=== PATIENT | female | born 1990 | race American Indian/Alaskan Native ===

== ENCOUNTER 2017-08-13 20:33 | Emergency (ER) | payer OTHER ==
[2017-08-13 21:04] VITALS: BMI 25.6
[2017-08-13] MEDS ORDERED: Sodium Chloride 0.9% 1,000 ML IV STA (21:08)
--- NOTE | 2017-08-13 21:12 | ED PDOC ---
Arrival/HPI <Augie Potter - Last Filed: 08/13/17 23:41> <Unruly iWlls - Last Filed: 08/14/17 00:40> - General Chief Complaint: Abdominal Pain Time Seen by Provider: 08/13/17 20:34 - History of Present Illness Narrative History of Present Illness (Text): Patient is a 26 year old female with a past medical history of asthma who presents to the ED for evaluation and treatment of abdominal pain with associated nausea and weakness which began 3 days ago with no specific provoking event. The abdominal pain originates in the epigastric region and remains localized. States the pain is sharp in nature. Admits to associated belching and metallic taste in her mouth. It is important to note she has been taking ibuprofen 800mg 1-2 times per day for the past several weeks after her wisdom teeth removal. Denies fever, chills, chest pain, SOB, vomitting, diarrhea , constipation, and urinary symptoms. 08/13/17 1:14 (Unruly Wills) Past Medical History - Provider Review Nursing Documentation Reviewed: Yes - Travel History Have you recently traveled outside [place] w/in the past 3 mons?: No - Reproductive Menopause: No - Cardiac Hx Cardiac Disorders: No - Pulmonary Hx Respiratory Disorders: No - Neurological Hx Neurological Disorder: No - HEENT Hx HEENT Disorder: No - Renal Hx Renal Disorder: No - Hematological/Oncological Hx Blood Disorders: No - Integumentary Hx Dermatological Disorder: No - Musculoskeletal/Rheumatological Hx Musculoskeletal Disorders: No - Gastrointestinal Hx Gastrointestinal Disorders: No - Genitourinary/Gynecological Hx Genitourinary Disorders: No - Psychiatric Hx Psychophysiologic Disorder: No Hx Substance Use: No - Anesthesia Hx Anesthesia: Yes Hx Anesthesia Reactions: No Hx Malignant Hyperthermia: No <Unruly Wills - Last Filed: 08/14/17 00:40> Family/Social History - Physician Review Nursing Documentation Reviewed: Yes Family/Social History: Unknown Family HX Smoking Status: Never Smoked Hx Alcohol Use: No Hx Substance Use: No <Unruly Wills - Last Filed: 08/14/17 00:40> Allergies/Home Meds <Augie Potter - Last Filed: 08/13/17 23:41> <Unruly Wills - Last Filed: 08/14/17 00:40> Allergies/Adverse Reactions: Allergies Penicillins Allergy (Verified 06/09/18 20:55) URTICARIA Home Medications: Home Meds Medication Instructions Recorded Confirmed No Known Home Med 08/13/17 08/13/17 Review of Systems - Physician Review All systems were reviewed & negative as marked: Yes - Review of Systems Constitutional: Normal Eyes: Normal ENT: Normal Respiratory: Normal Cardiovascular: Normal Gastrointestinal: Abdominal Pain, Nausea Genitourinary Female: Normal Musculoskeletal: Normal Skin: Normal Neurological: Normal Endocrine: Normal Hemo/Lymphatic: Normal Psychiatric: Normal <Unruly Wills - Last Filed: 08/14/17 00:40> Physical Exam Vital Signs Reviewed: Yes <Auige Potter - Last Filed: 08/13/17 23:41> Temperature: Afebrile Blood Pressure: Normal Pulse: Regular Respiratory Rate: Normal Appearance: Positive for: Well-Appearing, Non-Toxic, Comfortable Pain Distress: None Mental Status: Positive for: Alert and Oriented X 3 - Systems Exam Head: Present: Atraumatic, Normocephalic Pupils: Present: PERRL Extroacular Muscles: Present: EOMI Conjunctiva: Present: Normal Pharnyx: Present: Normal Nose (External): Present: Atraumatic Respiratory/Chest: Present: Clear to Auscultation, Good Air Exchange. No: Respiratory Distress, Accessory Muscle Use Cardiovascular: Present: Regular Rate and Rhythm, Normal S1, S2 Abdomen: Present: Tenderness, Normal Bowel Sounds. No: Peritoneal Signs, Rebound, Guarding, McBurney's Point Tender Upper Extremity: Present: Normal Inspection Lower Extremity: Present: Normal Inspection Neurological: Present: GCS=15, CN II-XII Intact, Speech Normal, Motor Func Grossly Intact, Normal Sensory Function Skin: Present: Warm, Dry, Normal Color Psychiatric: Present: Alert, Oriented x 3, Normal Insight, Normal Concentration <Unruly Wills - Last Filed: 08/14/17 00:40> Vital Signs Temp Pulse Resp BP Pulse Ox 08/13/17 23:15 98.6 F 60 18 111/79 100 08/13/17 20:48 98.4 F 67 17 107/62 100 Medical Decision Making <Augie Potter - Last Filed: 08/13/17 23:41> - Lab Interpretations I have reviewed the lab results: Yes <Unruly Wills - Last Filed: 08/14/17 00:40> ED Course and Treatment: 08/13/17 22:41 Cheryl Mendoza is a 26 year old female who presents to the emergency department for a complaint of abdominal pain, nausea, and weakness. In agreement with resident note which contains more details about the patient. Patient was seen and evaluated with resident. Came up with plan and treatment together. (Augie Potter) Assessment and Plan: Patient is a 26 year old female with a past medical history of asthma who presents to the ED for evaluation and treatment of abdominal pain with associated nausea and weakness. Abdominal Pain likely 04/08 GERD 08/13/17 21:35 - CBC, CMP - Mag - Lipase - PT PTT - UA - Urine Test, Hcg qualitative - Zofran, PPI, IVF NS 1 liter bolus 08/13/17 22:38 - CT of abdomen/pelvis with IV contrast 08/14/17 00:24 - CT reviewed- Small pelvic free fluid, possibly physiologic. No evidence of acute appendicitis. Postsurgical changes consistent with umbilical hernia repair. - ok to discharge to home (Unruly Wills) - Lab Interpretations Lab Results: 08/13/17 21:24 08/13/17 21:24 Lab Results 08/13/17 22:05: Urine Color Colorless, Urine Appearance Clear, Urine pH 6.0, Ur Specific [place] 1.025, Urine Protein 30 H, Urine Glucose (UA) Negative, Urine Ketones Trace H, Urine Blood Negative, Urine Nitrate Negative, Urine Bilirubin Negative, Urine Urobilinogen 0.2, Ur Leukocyte Esterase Negative, Urine RBC Negative, Urine WBC 0 - 2, Ur Epithelial Cells 1 - 3, Hyaline Casts 0 - 2, Urine HCG, Qual Negative 08/13/17 21:24: Sodium 144, Potassium 3.8, Chloride 107, Carbon Dioxide 25, Anion Gap 16, BUN 9, Creatinine 0.9, Est GFR ( Amer) > 60, Est GFR (Non- Af Amer) > 60, Random Glucose 91, Calcium 9.1, Magnesium 2.0, Total Bilirubin 0.2, AST 21, ALT 16, Alkaline Phosphatase 44, Total Protein 6.7, Albumin 3.9, Globulin 2.8, Albumin/Globulin Ratio 1.4, Lipase 145 08/13/17 21:24: PT 12.0, INR 1.05, APTT 27.4 08/13/17 21:24: WBC 7.4, RBC 3.92, Hgb 10.6 L, Hct 32.7 L, MCV 83.4, MCH 27.0, MCHC 32.4, RDW 13.6, Plt Count 322, MPV 9.0, Gran % 52.8, Lymph % (Auto) 39.2 H , [place] % (Auto) 4.3, Eos % (Auto) 3.4, Baso % (Auto) 0.3, Gran # 3.91, Lymph # ( Auto) 2.9, [place] # (Auto) 0.3, Eos # (Auto) 0.3, Baso # (Auto) 0.02 - RAD Interpretation Radiology Orders: 08/13/17 22:15 ABD & PELVIS IV CONTRAST ONLY [CT] Stat 08/13/17 22:15 ABD & PELVIS IV CONTRAST ONLY [CT] Stat FINDINGS: Lung bases: Unremarkable. No mass. No consolidation. ABDOMEN: Liver: Unremarkable. No mass. Gallbladder and bile ducts: The gallbladder is contracted. No calcified stones. No ductal dilation. Pancreas: Unremarkable. No mass. No ductal dilation. Spleen: Unremarkable. No splenomegaly. Adrenals: Unremarkable. No mass. Kidneys and ureters: Unremarkable. No solid mass. No hydronephrosis. Stomach and bowel: There is no wall thickening or pericolonic stranding to suggest colitis. No obstruction. PELVIS: There is mild stranding of the abdominal fat posterior to the umbilicus consistent with known umbilical hernia repair. Appendix: The appendix is mildly distended with gas measuring 7 mm. There is no adjacent inflammatory stranding to suggest acute appendicitis. Bladder: Unremarkable. No mass. Reproductive: A tampon is incidentally identified. ABDOMEN and PELVIS: There are Intraperitoneal space: There is a small amount of free pelvic fluid present. No free air. Bones/joints: No acute fracture. No dislocation. Soft tissues: Unremarkable. Vasculature: Unremarkable. No abdominal aortic aneurysm. Lymph nodes: Unremarkable. No enlarged lymph nodes. IMPRESSION: Small pelvic free fluid, possibly physiologic. No evidence of acute appendicitis. Postsurgical changes consistent with umbilical hernia repair (Unruly Wills) - Medication Orders Current Medication Orders: Discontinued Medications Sodium Chloride (Sodium Chloride 0.9%) 1,000 mls @ 1,000 mls/hr IV .Q1H STA Stop: 08/13/17 22:07 Last Admin: 08/13/17 21:26 Dose: 1,000 mls/hr eMAR Start Stop Document 08/13/17 21:26 (Rec: 08/13/17 21:26 [id number]) Intravenous Solution Start Date 08/13/17 Start Time 21:26 Ondansetron HCl (Zofran Inj) 4 mg IVP STAT STA Stop: 08/13/17 21:09 Last Admin: 08/13/17 21:25 Dose: 4 mg IVP Administration Document 08/13/17 21:25 SH (Rec: 08/13/17 21:25 [id number]) Charges for Administration # of IVP Administrations 1 Pantoprazole Sodium (Protonix Inj) 40 mg IVP STAT STA Stop: 08/13/17 21:09 Last Admin: 08/13/17 21:25 Dose: 40 mg IVP Administration Document 08/13/17 21:25 SH (Rec: 08/13/17 21:25 [id number]) Charges for Administration # of IVP Administrations 1 - Scribe Statement The provider has reviewed the documentation as recorded by the Scribe <Augie Potter - Last Filed: 08/13/17 23:41> <Unruly Wills - Last Filed: 08/14/17 00:40> - Scribe Statement Missy Cullen Provider Scribe Attestation: All medical record entries made by the Scribe were at my direction and personally dictated by me. I have reviewed the chart and agree that the record accurately reflects my personal performance of the history, physical exam, medical decision making, and the department course for this patient. I have also personally directed, reviewed, and agree with the discharge instructions and disposition. (Augie Potter) Disposition/Present on Arrival <Augie Potter - Last Filed: 08/13/17 23:41> - Present on Arrival Any Indicators Present on Arrival: No History of DVT/PE: No History of Uncontrolled Diabetes: No Urinary Catheter: No History of Decub. Ulcer: No History Surgical Site Infection Following: None - Disposition Have Diagnosis and Disposition been Completed?: Yes Disposition Time: 00:27 Patient Plan: Discharge <Unruly Wills - Last Filed: 08/14/17 00:40> - Disposition Diagnosis: Gastritis, GERD (gastroesophageal reflux disease) Disposition: HOME/ ROUTINE Patient Problems: Current Active Problems Problem Status Onset GERD (gastroesophageal reflux disease) Acute Gastritis Acute Condition: GOOD Additional Instructions: CHERYL MENDOZA, thank you for letting us take care of you today. Your provider was Augie Potter DO and you were treated for ABDOMINAL PAIN. The emergency medical care you received today was directed at your acute symptoms. If you were prescribed any medication, please fill it and take as directed. It may take several days for your symptoms to resolve. Return to the Emergency Department if your symptoms worsen, do not improve, or if you have any other problems. Please contact your doctor or call one of the physicians/clinics you have been referred to that are listed on the Patient Visit Information form that is included in your discharge packet. Bring any paperwork you were given at discharge with you along with any medications you are taking to your follow up visit. Our treatment cannot replace ongoing medical care by a primary care provider outside of the emergency department. Thank you for allowing the [facility] team to be part of your care today. If you had an X-Ray or CT scan: A Radiologist will review the ED reading if any change in treatment is needed we will contact you. If you had a blood, urine, or wound culture: It will take several days for the results, if any change in treatment is needed we will contact you. If you had an STI test: It will take 48 hours for the results. Please call after 1 week if you have not heard back. Please follow up with primary care physician within 2-5 days from discharge. Please take over the counter omeprazole 40 mg 1 tablet daily for 14 days. Referrals: Sydnee Villanueva DO [Primary Care Provider] - Follow up with primary Forms: [employer] (Nauruan)
[2017-08-13 21:34] LABS: BASO # 0.02 K/mm3 (0.0-2.0); BASO % 0.3 % (0.0-3.0); EOS # 0.3 (0.0-0.7); EOS % 3.4 % (1.5-5.0); GRAN # 3.91 (1.4-6.5); GRAN % 52.8 % (50.0-68.0); HEMOGLOBIN 10.6 g/dL (12.0-16.0); LYMPH # 2.9 (1.2-3.4); LYMPH % 39.2 % (22.0-35.0); MEAN CELL VOLUME 83.4 fl (80.0-105.0); MEAN CORPUSCULAR HGB CONC 32.4 g/dl (31.0-37.0); MONO # 0.3 (0.1-0.6); MONO % 4.3 % (1.0-6.0); RBC 3.92 10^6/uL (3.5-6.1); RED CELL DISTRIBUTION WIDTH 13.6 % (11.5-14.5); WHITE BLOOD COUNT 7.4 10^3/ul (4.5-11.0)
[2017-08-13 21:39] LABS: ALB/GLOB RATIO 1.4 (1.1-1.8); ALBUMIN 3.9 g/dL (3.0-4.8); ALT/SGPT 16 U/L (7-56); AST/SGOT 21 U/L (14-36); BLOOD UREA NITROGEN 9 mg/dL (7-21); CALCIUM 9.1 mg/dL (8.4-10.5); GFR AFRICAN-AMERICAN > 60; GFR NON-AFRICAN AMERICAN > 60; LIPASE 145 U/L (23-300)
[2017-08-13 21:44] LABS: INR 1.05 (0.93-1.08); PARTIAL THROMBOPLASTIN TIME 27.4 Seconds (25.1-36.5)
[2017-08-13 22:13] LABS: URINE BILIRUBIN NEGATIVE (NEGATIVE); URINE BLOOD NEGATIVE (NEGATIVE); URINE GLUCOSE (UA) NEGATIVE (NEGATIVE); URINE LEUKOCYTE ESTERASE NEGATIVE Leu/uL (NEGATIVE); URINE PROTEIN 30 mg/dL (<30 mg/dL); URINE UROBILINOGEN 0.2 E.U./dL (<1 E.U./dL)
[2017-08-13 22:14] LABS: URINE APPEARANCE CLEAR (CLEAR); URINE COLOR COLORLESS (YELLOW)
[2017-08-13 22:16] LABS: HCG,QUALITATIVE URINE NEGATIVE (NEGATIVE)
[2017-08-13 22:20] LABS: URINE HYALINE CAST 0 - 2 /hpf; URINE RBC NEGATIVE /hpf (0-2); URINE WBC 0 - 2 /hpf (0-6)
[2017-08-13] MEDS ORDERED: Iohexol 350 MG/100 ML VIAL ONE (22:20)
--- NOTE | 2017-08-14 00:08 | CT ---
EXAM: CT Abdomen and Pelvis With Intravenous Contrast CLINICAL HISTORY: 26 years old, female; Pain; Abdominal pain; Localized; Right lower quadrant (rlq); Prior surgery; Surgery type: Umbilical herniorrhaphy; Additional info: Rlq, epigastric pain TECHNIQUE: Axial computed tomography images of the abdomen and pelvis with intravenous contrast. All CT scans at this facility use one or more dose reduction techniques, viz.: automated exposure control; ma/kV adjustment per patient size (including targeted exams where dose is matched to indication; i.e. head); or iterative reconstruction technique. Coronal and sagittal reformatted images were created and reviewed. CONTRAST: 92 mL of OMNI 350 administered intravenously. COMPARISON: No relevant prior studies available. FINDINGS: Lung bases: Unremarkable. No mass. No consolidation. ABDOMEN: Liver: Unremarkable. No mass. Gallbladder and bile ducts: The gallbladder is contracted. No calcified stones. No ductal dilation. Pancreas: Unremarkable. No mass. No ductal dilation. Spleen: Unremarkable. No splenomegaly. Adrenals: Unremarkable. No mass. Kidneys and ureters: Unremarkable. No solid mass. No hydronephrosis. Stomach and bowel: There is no wall thickening or pericolonic stranding to suggest colitis. No obstruction. PELVIS: There is mild stranding of the abdominal fat posterior to the umbilicus consistent with known umbilical hernia repair. Appendix: The appendix is mildly distended with gas measuring 7 mm. There is no adjacent inflammatory stranding to suggest acute appendicitis. Bladder: Unremarkable. No mass. Reproductive: A tampon is incidentally identified. ABDOMEN and PELVIS: There are Intraperitoneal space: There is a small amount of free pelvic fluid present. No free air. Bones/joints: No acute fracture. No dislocation. Soft tissues: Unremarkable. Vasculature: Unremarkable. No abdominal aortic aneurysm. Lymph nodes: Unremarkable. No enlarged lymph nodes. IMPRESSION: Small pelvic free fluid, possibly physiologic. No evidence of acute appendicitis. Postsurgical changes consistent with umbilical hernia repair.
[2017-08-14 01:01] VITALS: BP 118/68; PULSE 62; RESP 16; TEMP 98.2; O2SAT 97
== END 2017-08-14 00:50 | disposition home or self-care (01) ==
LOC: ED 20:33 → MERGE 20:33 → ED 08-14 00:50
DX: K21.9 Gastro-esophageal reflux disease without esophagitis (principal); K29.70 Gastritis, unspecified, without bleeding
CPT/HCPCS: 74177; 80053; 81001; 83690; 83735; 84703; 85025; 85610; 85730; 96374; 96375; 99282; C9113; J2405; J7030; Q9967

== ENCOUNTER 2017-10-04 18:16 | Emergency (ER) | payer OTHER ==
[2017-10-04 18:19] VITALS: BMI 24.7
[2017-10-04 18:20] VITALS: RESP 18; TEMP 98; O2SAT 100
--- NOTE | 2017-10-04 18:54 | ED PDOC ---
Arrival/HPI - General Historian: Patient - General Chief Complaint: ENT Problem Time Seen by Provider: 10/04/17 18:36 - History of Present Illness Narrative History of Present Illness (Text): 10/04/17 18:48 Patient is a 26 year old female with no past medical history presents with a 10 hour hx of runny nose, sore throat and body aches. She woke up this morning with body aches, runny nose and a headache. She took excedrin at 10 am which provided her with moderate relief. She has not taken anything since. She feels a little bit better now but states she no longer has an appetite. Her last meal was approximately 30 minutes ago, which she ate [employer]. She denies fevers, chills, nausea, vomiting, diarrhea, constipation, chest pain, shortness of breath, abdominal pain, numbness or tingling. She denies any sick contacts at home or at work. (GlenysDemarco) Past Medical History - Provider Review Nursing Documentation Reviewed: Yes - Infectious Disease Hx of Infectious Diseases: None - Cardiac Hx Cardiac Disorders: No - Pulmonary Hx Respiratory Disorders: No - Neurological Hx Neurological Disorder: No - HEENT Hx HEENT Disorder: No - Renal Hx Renal Disorder: No - Hematological/Oncological Hx Blood Disorders: No - Integumentary Hx Dermatological Disorder: No - Musculoskeletal/Rheumatological Hx Musculoskeletal Disorders: No - Gastrointestinal Hx Gastrointestinal Disorders: No - Genitourinary/Gynecological Hx Genitourinary Disorders: No - Psychiatric Hx Psychophysiologic Disorder: No Hx Substance Use: No - Surgical History Other/Comment: hernia sx - Anesthesia Hx Anesthesia: Yes Hx Anesthesia Reactions: No Hx Malignant Hyperthermia: No - Suicidal Assessment Feels Threatened In Home Enviroment: No Family/Social History - Physician Review Nursing Documentation Reviewed: Yes Family/Social History: Unknown Family HX Smoking Status: Never Smoked Hx Alcohol Use: No Hx Substance Use: No Allergies/Home Meds Allergies/Adverse Reactions: Allergies Penicillins Allergy (Intermediate, Verified 05/05/17 10:47) RASH Review of Systems - Physician Review All systems were reviewed & negative as marked: Yes - Review of Systems Constitutional: Normal. absent: Fevers Eyes: Normal. absent: Vision Changes ENT: Sore Throat, Rhinorrhea. absent: Epistaxis, Sinus Congestion Respiratory: Cough (mild, productive clear sputum). absent: SOB Cardiovascular: Normal. absent: Chest Pain, Palpitations Gastrointestinal: Normal. absent: Abdominal Pain, Constipation, Diarrhea, Nausea, Vomiting Genitourinary Female: Normal Musculoskeletal: Myalgias (overall) Skin: Normal Neurological: Headache Endocrine: Normal Hemo/Lymphatic: Normal Psychiatric: Normal Physical Exam Vital Signs Reviewed: Yes Temperature: Afebrile Blood Pressure: Normal Pulse: Regular Respiratory Rate: Normal Appearance: Positive for: Well-Appearing, Non-Toxic, Comfortable Pain Distress: None Mental Status: Positive for: Alert and Oriented X 3 - Systems Exam Head: Present: Atraumatic, Normocephalic Extroacular Muscles: Present: EOMI Conjunctiva: Present: Normal. No: Injected, Icteric Mouth: Present: Moist Mucous Membranes, Normal Lips, Normal Tounge, Normal Teeth Pharnyx: Present: Normal. No: ERYTHEMA, EXUDATE, TONSILS ENLARGED, Peritonsilar Swelling, Uvular Deviation, Muffled/Hoarse Voice, Strider, Soft Palate/Uvular Edema Nose (External): Present: Atraumatic Nose (Internal): Present: Normal Inspection, No Active Bleeding, Moist. No: Engorged, Edematous, Rhinorrhea, Purulent Mucous Neck: Present: Normal Range of Motion. No: MIDLINE TENDERNESS, Lymphadenopathy Respiratory/Chest: Present: Clear to Auscultation, Good Air Exchange. No: Respiratory Distress, Accessory Muscle Use Cardiovascular: Present: Regular Rate and Rhythm, Normal S1, S2. No: Murmurs Abdomen: No: Tenderness, Distention, Peritoneal Signs Neurological: Present: GCS=15, Speech Normal, Memory Normal Skin: Present: Warm, Dry, Normal Color. No: Rashes Psychiatric: Present: Alert, Oriented x 3, Normal Insight, Normal Concentration Vital Signs Temp Pulse Resp BP Pulse Ox 10/04/17 19:12 98 F 81 18 110/68 100 10/04/17 18:19 98 F 80 18 107/68 100 Medical Decision Making ED Course and Treatment: 10/04/17 18:58 No symptoms present at time of presentation. Will discharge home. Discussed with patient and her boyfriend that there is no indication for antibiotics at this time due to short duration of illness. (Demarco Vreonica) Seen and examined with resident. 26 y/o F p/w rhinorrhea and mild body aches. On exam, clear lungs, pharnyx and tonsils normal. (Eugene Rogers) Disposition/Present on Arrival - Present on Arrival Any Indicators Present on Arrival: No History of DVT/PE: No History of Uncontrolled Diabetes: No Urinary Catheter: No History of Decub. Ulcer: No History Surgical Site Infection Following: None - Disposition Have Diagnosis and Disposition been Completed?: Yes Disposition Time: 19:00 Patient Plan: Discharge - Disposition Diagnosis: URI (upper respiratory infection) Disposition: HOME/ ROUTINE Condition: FAIR Discharge Instructions (ExitCare): Viral Upper Respiratory Infection, Adult (DC ) Prescriptions: Guaifenesin [Mucinex] 1,200 mg PO BID PRN #20 tab.er.12h PRN Reason: Flu Symptoms Forms: [facility] (Czech)
[2017-10-04 19:14] VITALS: BP 110/68; PULSE 81
== END 2017-10-04 19:12 | disposition home or self-care (01) ==
LOC: ED 18:16
DX: J06.9 Acute upper respiratory infection, unspecified (principal)

== ENCOUNTER 2018-07-20 08:18 | Emergency (ER) | payer OTHER ==
[2018-07-20 08:18] VITALS: BMI 24.7
[2018-07-20 08:29] VITALS: BP 95/64; PULSE 73; RESP 17; TEMP 97.5; O2SAT 100
--- NOTE | 2018-07-20 08:38 | ED PDOC ---
Arrival/HPI - General Historian: Patient - History of Present Illness Narrative History of Present Illness (Text): 07/20/18 08:44 Patient is a 27 yo AA female with no PMH who presents with sore throat. Patient states sore throat started about 2 days ago and has been worsening. She now says that she feels some pain in both of her ears. She has pain with swallowing but has been able to eat and and drink. She has a mild cough. She says she feels like she has mucus to cough up but nothing comes out. She denies nasal congestion/rhinorrhea. Denies chest congestion/SOB. Denies fevers/chills. Denies sinus pressure/headache. She may have been around sick contacts at work. She has tried Mucinex, Tylenol, and salt water gargling without relief of symptoms. Time/Duration: < week Symptom Onset: Gradual Symptom Course: Worsening Quality: Burning <Melissa Polanco - Last Filed: 07/20/18 08:46> <Eugene Rogers - Last Filed: 07/20/18 09:09> - General Chief Complaint: ENT Problem Time Seen by Provider: 07/20/18 08:37 Past Medical History - Provider Review Nursing Documentation Reviewed: Yes - Past History Past History: No Previous - Infectious Disease Hx of Infectious Diseases: None - Cardiac Hx Cardiac Disorders: No - Pulmonary Hx Respiratory Disorders: No - Neurological Hx Neurological Disorder: No - HEENT Hx HEENT Disorder: No - Renal Hx Renal Disorder: No - Hematological/Oncological Hx Blood Disorders: No - Integumentary Hx Dermatological Disorder: No - Musculoskeletal/Rheumatological Hx Musculoskeletal Disorders: No - Gastrointestinal Hx Gastrointestinal Disorders: No - Genitourinary/Gynecological Hx Genitourinary Disorders: No - Psychiatric Hx Psychophysiologic Disorder: No Hx Substance Use: No - Surgical History Other/Comment: hernia sx - Anesthesia Hx Anesthesia: Yes Hx Anesthesia Reactions: No Hx Malignant Hyperthermia: No - Suicidal Assessment Feels Threatened In Home Enviroment: No <Melissa Polanco - Last Filed: 07/20/18 08:46> Family/Social History Family/Social History: Unknown Family HX Smoking Status: Never Smoked Hx Alcohol Use: Yes Frequency of alcohol use: Socially Hx Substance Use: No <Melissa Polanco - Last Filed: 07/20/18 08:46> Allergies/Home Meds <Melissa Polanco - Last Filed: 07/20/18 08:46> <Eugene Rogers - Last Filed: 07/20/18 09:09> Allergies/Adverse Reactions: Allergies Penicillins Allergy (Intermediate, Verified 05/05/17 10:47) RASH Review of Systems - Review of Systems Constitutional: absent: Fatigue, Fevers Eyes: Normal ENT: Sore Throat. absent: Rhinorrhea, Sinus Congestion Respiratory: Cough. absent: SOB, Sputum Cardiovascular: absent: Chest Pain, Palpitations Gastrointestinal: absent: Abdominal Pain, Constipation, Diarrhea, Nausea, Vomiting Genitourinary Female: absent: Dysuria, Hematuria Musculoskeletal: absent: Arthralgias Skin: absent: Rash, Pruritis, Skin Lesions Neurological: absent: Headache, Dizziness Endocrine: absent: Diaphoresis Hemo/Lymphatic: absent: Adenopathy <Melissa Polanco - Last Filed: 07/20/18 08:46> Physical Exam Vital Signs Reviewed: Yes Vital Signs Temp Pulse Resp BP Pulse Ox 07/20/18 08:26 97.5 F L 73 17 95/64 L 100 Temperature: Afebrile Blood Pressure: Normal Pulse: Regular Respiratory Rate: Normal Appearance: Positive for: Non-Toxic, Comfortable Pain Distress: None Mental Status: Positive for: Alert and Oriented X 3 - Systems Exam Head: Present: Atraumatic, Normocephalic Pupils: Present: PERRL Extroacular Muscles: Present: EOMI Conjunctiva: Present: Normal Ears: Present: Fluid. No: Erythema, TM Bulging Mouth: Present: Moist Mucous Membranes Pharnyx: Present: ERYTHEMA, EXUDATE. No: Peritonsilar Swelling, Uvular Deviation Neck: Present: Normal Range of Motion, Trachea Midline. No: Meningeal Signs, Lymphadenopathy Respiratory/Chest: Present: Clear to Auscultation, Good Air Exchange Cardiovascular: Present: Regular Rate and Rhythm, Normal S1, S2 Neurological: Present: GCS=15, CN II-XII Intact, Speech Normal Skin: Present: Warm, Dry, Normal Color Lymphatic: No: Cervical Adenopathy Psychiatric: Present: Alert, Oriented x 3, Normal Insight, Normal Concentration <Melissa Polanco - Last Filed: 07/20/18 08:46> Vital Signs Temp Pulse Resp BP Pulse Ox 07/20/18 08:26 97.5 F L 73 17 95/64 L 100 - Systems Exam Pharnyx: Present: EXUDATE <Eugene Rogers - Last Filed: 07/20/18 09:09> Medical Decision Making ED Course and Treatment: 07/20/18 09:08 Patient seen and examined with resident. Patient is a 27 year old F with chief complaint of sore throat. Pharyngeal erythema and exudates noted on physical exam <Eugene Rogers - Last Filed: 07/20/18 09:09> Disposition/Present on Arrival - Present on Arrival Any Indicators Present on Arrival: No History of DVT/PE: No History of Uncontrolled Diabetes: No Urinary Catheter: No History of Decub. Ulcer: No History Surgical Site Infection Following: None - Disposition Have Diagnosis and Disposition been Completed?: Yes Disposition Time: 08:57 Patient Plan: Discharge <Melissa Polanco - Last Filed: 07/20/18 08:46> <Eugene Rogers - Last Filed: 07/20/18 09:09> - Disposition Diagnosis: Strep pharyngitis Disposition: HOME/ ROUTINE Condition: STABLE Discharge Instructions (ExitCare): Bacterial Upper Respiratory Infection, Adult (DC) Prescriptions: Azithromycin [Z-Meet] 250 mg PO DAILY #6 tab Forms: Basha (Setswana)
== END 2018-07-20 09:13 | disposition home or self-care (01) ==
LOC: ED 08:18
DX: J02.0 Streptococcal pharyngitis (principal)